=== PATIENT | male | born 1995 | race Caucasian/White ===

== ENCOUNTER 2016-05-05 23:54 | Inpatient (IN) | payer BC ==
[2016-05-05] MEDS ORDERED: NS 1,000 ML IV ONE (23:57)
[2016-05-06] MEDS ORDERED: IOPAMIDOL (ISOVUE-300) 100 ML BTL IV ONE (00:01)
--- NOTE | 2016-05-06 00:03 | EDPHY ---
[id number] ILLNESS: This patient 21-year-old male denies any significant medical history brought in by EMS GCS 15, alert and orient x4, intoxicated with alcohol, he fell off a balcony 15 feet landing on his left side. He has obvious ecchymosis and swelling to left chest wall. He tells me he has pain all over his body. Upon arrival here to the emergency room he has been placed into ER room 4. He has been placed on a full risk compliance manager cervical collar has been in place. We removed all his clothes and on head to toe trauma exam. Past Medical History: No significant medical history Past Surgical History: No significant surgical history Social History: endorses alcohol this evening, also endorses doing acid Family History: Noncontributory ROS REVIEW OF SYSTEMS: A comprehensive 10 point review of systems is otherwise negative aside from elements mentioned in the history of present illness. Exam Constitutional GCS 15, alert or x4, smells of alcohol, triage nursing summary reviewed, vital signs reviewed, awake/alert. Eyes normal conjunctivae and sclera, EOMI, PERRLA. HENT head/neck: Atraumatic, placed in a cervical collar, normal inspection, atraumatic, moist mucus membranes, no epistaxis, neck supple/ no meningismus, no raccoon eyes. Respiratory clear to auscultation bilaterally, normal breath sounds, no respiratory distress, no wheezing. Cardiovascular chest wall: Ecchymosis and swelling to the left lateral chest wall, I do not appreciate flail chest, do not appreciate crepitus, This does wrap around to the left posterior ribs, no midline pain of the cervical T and L- spine, no flail chest, no crepitus, rate normal, regular rhythm, no murmur, no edema, distal pulses normal. Gastrointestinal soft, non-tender, no rebound, no guarding, normal bowel sounds, no distension, no pulsatile mass. Genitourinary no CVA tenderness. Musculoskeletal left upper extremity no midline vertebral tenderness, full range of motion, no calf swelling, no tenderness of extremities, no meningismus , good pulses, neurovascularly intact. Skin pink, warm, & dry, no rash, skin atraumatic. Neurologic smells of alcohol, awake, alert and oriented x 3, AAOx3, moves all 4 extremities equally, motor intact, sensory intact, CN II-XII intact, normal cerebellar, normal vision, slurring of speech Psychiatric normal mood/affect. Heme/Lymph/Immune no lymphadenopathy. Differential Diagnosis: Includes but is not limited to in a particular order: Pneumothorax, hemothorax, rib fractures, poly trauma, intracranial bleed, subdural, epidural, traumatic subarachnoid, skull fracture, cervical spine injury, intra-abdominal trauma Medical Decision Making:This patient had a CT scan head, neck, chest abdomen pelvis with IV contrast for trauma, patient had an x-ray of his left forearm Re-evaluation: 1206: This patient tells me he has no idea how he fell 15 feet [place]. He does tell me he has tenderness 10 left lateral posterior rib pain. He tells me drank multiple alcoholic beverages this evening states he drank 7 beers. He also admits to doing acid. CT scan of the chest with contrast for trauma. The results of the study are left-sided large pneumothorax no tension physiology, left-sided rib fracture 9th and 10th posterior also has a T8 TP fx, T9 TP Fx The study was read by Dr. Trinidad. I viewed the images myself on the PACS system. CT scan of the Head w/o. The results of the study are negative for acute traumatic injury The study was read by Dr. Trinidad. I viewed the images myself on the PACS system. CT scan of the C Spine The results of the study are negative for acute traumatic injury. The study was read by Dr. Trinidad. I viewed the images myself on the PACS system. CT scan of the Abd/pelvis. The results of the study are negative for acute traumatic intra-abdominal injury. The study was read by Dr. Trinidad. I viewed the images myself on the PACS system. ED x-ray chest one view: Negative for acute cardiopulmonary disease. I do not appreciate a large pneumothorax. ED x-ray left forearm: Soft tissue swelling, no bony abnormality. Image interpreted by myself. Dr. Todd aware of this patient. Patient moved ER room 2 for chest tube placement. Critical Care: Total Critical Care Time Spent Managing this Patient: 60Minutes. This time was spent Exclusively with this patient. This Care was exclusive of procedures. The Organ System/life at risk was poly trauma, ribs, lung, intra-abdominal organ , neuro, spine This Patient was in Critical Condition because large left-sided pneumothorax, multiple rib fractures, transverse process fractures 0200: Patient is hemodynamically stable has a left-sided chest tube in place. This was placed by Dr. Todd with Trauma surgery. Post x-ray of chest tube appears in place. Patient be transferred to step-down unit telemetry monitoring given the has a chest tube in place and is intoxicated with acid and alcohol. Source: Patient, EMS Constitutional: Initial Vital Signs Temperature (C) 36.6 C 05/05/16 23:55 Heart Rate 102 H 05/05/16 23:55 Respiratory Rate 16 05/05/16 23:55 Blood Pressure 131/61 H 05/05/16 23:55 O2 Sat (%) 94 05/05/16 23:55 O2 Delivery Mode Room Air O2 (L/minute) 2 Allergies/Adverse Reactions: No Known Allergies Allergy (Unverified 05/06/16 00:30) Medical Decision Making - Data Points Laboratory Results: Laboratory Results 05/06/16 00:06 05/06/16 00:06 05/06/16 05/05/16 00:06 23:59 WBC 8.60 10^3/uL (3.80-9.50) RBC 4.81 10^6/uL (4.40-6.38) Hgb 15.5 g/dL (13.7-17.5) POC Hgb 15.6 gm/dL (14.5-17.3) Hct 44.8 % (40.0-51.0) POC Hct 46 % (42.8-50.6) MCV 93.1 fL (81.5-99.8) MCH 32.2 pg (27.9-34.1) MCHC 34.6 g/dL (32.4-36.7) RDW 12.5 % (11.5-15.2) Plt Count 165 10^3/uL (150-400) MPV 9.7 fL (8.7-11.7) Neut % (Auto) 49.3 % (39.3-74.2) Lymph % (Auto) 37.3 % (15.0-45.0) [place] % (Auto) 11.9 % (4.5-13.0) Eos % (Auto) 0.6 % (0.6-7.6) Baso % (Auto) 0.2 L % (0.3-1.7) Nucleat RBC Rel Count 0.0 % (0.0-0.2) Absolute Neuts (auto) 4.24 10^3/uL (1.70-6.50) Absolute Lymphs (auto) 3.21 H 10^3/uL (1.00-3.00) Absolute Monos (auto) 1.02 H 10^3/uL (0.30-0.80) Absolute Eos (auto) 0.05 10^3/uL (0.03-0.40) Absolute Basos (auto) 0.02 10^3/uL (0.02-0.10) Absolute Nucleated RBC 0.00 10^3/uL (0-0.01) Immature Gran % 0.7 % (0.0-1.1) Immature Gran # 0.06 10^3/uL (0.00-0.10) PT 13.2 SEC (12.0-15.0) INR 1.01 (0.83-1.16) APTT 28.5 SEC (23.0-38.0) POC Sodium 141 mEq/L (134-144) Sodium 145 H mEq/L (134-144) POC Potassium 3.1 L mEq/L (3.3-5.0) Potassium 3.5 mEq/L (3.5-5.2) POC Chloride 104 mEq/L (96-108) Chloride 109 mEq/L (97-110) Carbon Dioxide 20 L mEq/l (22-31) Anion Gap 16 mEq/L (8-16) POC BUN 13 mg/dL (7-23) BUN 13 mg/dL (7-23) Creatinine 0.8 mg/dL (0.7-1.3) POC Creatinine 1.1 mg/dL (0.8-1.5) Estimated GFR > 60 Glucose 100 mg/dL (70-100) POC Glucose 103 H mg/dL (70-100) Calcium 8.8 mg/dL (8.5-10.4) Ethyl Alcohol 198 H mg/dL (0-10) Medications Given: Discontinued Medications Fentanyl (Sublimaze) 100 mcg IVP EDNOW ONE Stop: 05/06/16 00:27 Last Admin: 05/06/16 00:27 Dose: 100 mcg Sodium Chloride (Ns) 1,000 mls @ 0 mls/hr IV EDNOW ONE PRN Reason: Wide Open Stop: 05/05/16 23:58 Last Admin: 05/06/16 00:22 Dose: 1,000 mls Ondansetron HCl (Zofran) 4 mg IVP EDNOW ONE Stop: 05/06/16 01:31 Last Admin: 05/06/16 01:35 Dose: 4 mg Point of Care Test Results: 05/05/16 23:59 POC Sodium 141 POC Potassium 3.1 L POC Chloride 104 POC BUN 13 POC Creatinine 1.1 POC Glucose 103 H Departure - Departure Disposition: [facility] Inpatient Acute Clinical Impression: Multiple transverse process fractures Alcohol intoxication Qualifiers: Complication of substance-induced condition: uncomplicated Qualifier Code: ( F10.120) Alcohol abuse with intoxication, uncomplicated Pneumothorax Qualifiers: Pneumothorax type: traumatic Encounter type: initial encounter Qualifier Code: (S27.0XXA) Traumatic pneumothorax, initial encounter Rib fracture Qualifiers: Encounter type: initial encounter Rib fracture type: multiple ribs Fracture type: closed Laterality: left Qualifier Code: (S22.42XA) Multiple fractures of ribs, left side, initial encounter for closed fracture Condition: Fair
[2016-05-06] MEDS ORDERED: fentaNYL 100 MCG/2 ML INJ ONE (00:09)
[2016-05-06 00:12] LABS: % IMMATURE GRANULYOCYTES 0.7 % (0.0-1.1); ABSOLUTE IMMATURE GRANULOCYTES 0.06 10^3/uL (0.00-0.10); ADD DIFF? NO; ADD MORPH? NO; ADD SCAN? NO; ATYPICAL LYMPHOCYTE FLAG 30 (0-99); FRAGMENT RBC FLAG 0 (0-99); HEMATOCRIT 44.8 % (40.0-51.0); HEMOGLOBIN 15.5 g/dL (13.7-17.5); LEFT SHIFT FLG 0 (0-99); LIPEMIA HEMOLYSIS FLAG 90 (0-99); MEAN CELL HEMOGLOBIN 32.2 pg (27.9-34.1); MEAN CELL HEMOGLOBIN CONCENTR. 34.6 g/dL (32.4-36.7); MEAN CELL VOLUME 93.1 fL (81.5-99.8); MEAN PLATELET VOLUME 9.7 fL (8.7-11.7); PLATELET CLUMPS FLAG 0 (0-99); PLATELET COUNT 165 10^3/uL (150-400); RED BLOOD CELL COUNT 4.81 10^6/uL (4.40-6.38); RED CELL DISTRIBUTION WIDTH 12.5 % (11.5-15.2)
[2016-05-06 00:21] LABS: INR 1.01 (0.83-1.16); PROTIME(PATIENT) 13.2 SEC (12.0-15.0)
[2016-05-06 00:22] LABS: APTT 28.5 SEC (23.0-38.0)
[2016-05-06] MEDS ORDERED: fentaNYL 100 MCG/2 ML INJ IVP ONE (00:26)
[2016-05-06 00:33] LABS: ANION GAP 16 mEq/L (8-16); CALCIUM 8.8 mg/dL (8.5-10.4); CARBON DIOXIDE 20 mEq/l (22-31); CHLORIDE 109 mEq/L (97-110); CREATININE 0.8 mg/dL (0.7-1.3); ETHANOL SERUM 198 mg/dL (0-10); GLOMERULAR FILTRATION RATE > 60; GLUCOSE 100 mg/dL (70-100); POTASSIUM 3.5 mEq/L (3.5-5.2); SODIUM 145 mEq/L (134-144)
[2016-05-06] MEDS ORDERED: ACETAMINOPHEN 325 MG TAB PO PRN (00:51)
[2016-05-06] MEDS ORDERED: NALOXONE HCL 0.4 MG/ML INJ IVP PRN ×2 (00:51→07:50)
[2016-05-06] MEDS ORDERED: IBUPROFEN 600 MG TAB PO PRN (00:51)
[2016-05-06] MEDS ORDERED: LR 1,000 ML IV SCH (01:00)
--- NOTE | 2016-05-06 01:25 | CT ---
CT Chest, Abdomen, and Pelvis With Thoracolumbar Spine Reformations With Contrast History: Fall 15 feet. Comparison: CT cervical spine same day. Technique: Axial contrast enhanced images were obtained through the chest, abdomen and pelvis followi ng the uneventful administration of 98 mL Isovue-300 intravenous contrast. Multiplanar reformations w ere performed through the spine. Dose reduction techniques were utilized. Findings: Chest: There is a large left pneumothorax with a tiny left pleural effusion, without mediastinal shift. The right lung is clear. Heart size is normal. The aorta is normal caliber without dissection. A mildly c omminuted nondisplaced posterior left 9th rib fracture is present with a nondisplaced posterior left 10th rib fracture. Subcutaneous emphysema overlies the posterior left chest. Abdomen: A tiny hypodensity in the liver is too small to characterize, of doubtful clinical significance. The right lobe of the liver is elongated, suggesting a Sb's lobe. The gallbladder, spleen, pancreas, and adrenals are normal. There are ill-defined subtle areas of hypoenhancement in the kidneys bilater ally. There is no visible renal laceration. No perinephric fluid is present. The colon and small bowel are normal caliber. The appendix is normal. There is no free air. The aorta is normal caliber. The IVC, portal, splenic, and superior mesenteric veins are patent. Pelvis: The bladder is mildly distended but otherwise normal. There is trace free fluid. Subcutaneous contusi ons are noted in the left buttock. No fracture is identified. Thoracolumbar Spine: A nondisplaced fracture of the left T8 transverse process is present with an equivocal nondisplaced l eft T9 transverse process fracture. Mild anterior height reduction at T7 and T8 with endplate irregul arity is likely congenital. No lumbar fracture is identified. Alignment of the spine is normal. Impression: 1. Large left pneumothorax without definite evidence of tension. 2. Nondisplaced posterior left 9th and 10th rib fractures 3. Nondisplaced left T8 transverse process fracture with a possible nondisplaced left T9 transverse p rocess fracture. 4. Subtle ill-defined heterogeneous renal enhancement bilaterally. This could be related to renal con tusions, pyelonephritis or artifact, among other etiologies. 5. 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 If symptoms persist and clinical suspi cion warrants, consider MRI. 6. Trace fluid in the pelvis. 7. Additional findings as above. Findings discussed with Valentino Hartley May 06, 2016 at 0047 hours.
--- NOTE | 2016-05-06 01:26 | CT ---
CT Cervical Spine Without Contrast History: Fall 15 feet. Comparison: CT head and chest same day. Technique: Multislice helical CT through the cervical spine without contrast from the skull base to T 1. Soft tissue and bone evaluation is performed. Sagittal and coronal reconstructions are obtained an d reviewed. Dose reduction techniques were utilized. The study was repeated due to motion. Findings: Cervical alignment is anatomic. No fracture is identified. The relationship between the sku ll base and C1 is normal. The C1-C2 articulation is normal. There is no significant degenerative lee ge. The cervicothoracic junction is normal. There is no visible epidural or prevertebral hematoma. A large left pneumothorax is visible. Impression: 1. Left pneumothorax, better visualized on CT chest from the same day. 2. No acute findings in the cervical spine. If there is persistent pain or neurologic deficit, consid er MRI and/or flexion and extension views if clinically indicated. Findings discussed with Valentino Hartley May 06, 2016at 0047 hours.
--- NOTE | 2016-05-06 01:26 | CT ---
CT Head Without Contrast History: Fall 15 feet. Comparison: None available. Technique: Axial unenhanced images were obtained from the vertex through the skull base. Dose reducti on techniques were utilized. Findings: Mcneal-white differentiation is preserved. The ventricles and sulci are normal. No intracra nial hemorrhage is identified. No extraaxial fluid collections are identified. There is no mass effe ct or evidence of infarct. The skull and skull base are unremarkable. Mild mucous membrane thickeni ng is present in the paranasal sinuses. The mastoid air cells are clear. Impression: No acute intracranial findings. Findings discussed with Valentino Hartley May 06, 2016 at 0047 hours.
[2016-05-06] MEDS ORDERED: ONDANSETRON 4 MG/2 ML VIAL IVP ONE (01:30)
--- NOTE | 2016-05-06 02:10 | GHP ---
[f rep st] HISTORY AND PHYSICAL DATE OF ADMISSION: 05/06/2016 CHIEF COMPLAINT: Fall with pneumothorax. HISTORY OF PRESENT ILLNESS: The patient is a 21-year-old, who was using acid earlier this evening when he fell. He was also intoxicated. He fell off a balcony about 15 feet. Prior to my arrival, he had a chest x-ray and a CT scan of his head, neck, chest, abdomen, and pelvis. Rib fractures of the left side 9 and 10 were found. Pneumothorax was found and left transverse process fractures of T8, T9. PAST MEDICAL HISTORY: Asthma. PAST SURGICAL HISTORY: None. SOCIAL HISTORY: He drinks alcohol. He has used a variety of drugs but only acid this evening. He does not use tobacco products. FAMILY HISTORY: Noncontributory. REVIEW OF SYSTEMS: Difficult to obtain due to his being high and needing immediate procedure. PHYSICAL EXAMINATION: VITAL SIGNS: His GCS is 15. 36.5, 102, 131/61, 16 94% on 2 L. GENERAL: Pleasant, needs to be redirected, well-groomed male sitting up and well-nourished on exam table. LUNGS: Decreased breath sounds on the left side. CARDIAC: Regular rate. HEENT: Normocephalic. No gross hearing deficits. Mucous membranes moist. Pupils equal and round. No scleral icterus. No otorrhea. No rhinorrhea. Teeth fit together normally. No midface instability. NECK: C-collar in place. No clavicular or sternal tenderness. ABDOMEN: Bowel sounds present. Soft, nontender, nondistended. MUSCULOSKELETAL: Moves all extremities. Normal nails. RESULTS REVIEWED: I personally reviewed his chest x-ray. He has a pneumothorax. IMPRESSION/PLAN: The patient is a 21-year-old, status post fall who was using illicit substances with a subsequent pneumothorax. I placed a chest tube. The post chest tube x-ray shows resolution of the pneumothorax. We will admit him to the SDU. Chest tube to suction. I cannot clear his c collar due to being high /[id number]/MODL MTDD
[2016-05-06] MEDS: HYDROCODONE/APAP 5/325 TAB PO PRN ×2 (03:53→07:39)
--- NOTE | 2016-05-06 04:15 | GPN ---
[f rep st] PROCEDURE NOTE DATE OF PROCEDURE: 05/06/2016 ANESTHESIA: None. PREOPERATIVE DIAGNOSIS: Left pneumothorax POSTOPERATIVE DIAGNOSIS: Left pneumothorax. PROCEDURE PERFORMED: Left chest tube thoracostomy. FINDINGS: Large gush of air. ESTIMATED BLOOD LOSS: 5 cc. SPECIMENS: None. INDICATIONS: The patient is a 21-year-old who fell earlier this evening and sustained rib fractures and a pneumothorax. DESCRIPTION OF PROCEDURE: The patient was in the Trauma [place]. He was on the gurney. His left arm was over his head. I prepped and draped his lateral chest. I infiltrated it with 10 cc of 1% lidocaine. I made an incision above the 6th rib space. I dissected down above the rib. I entered the chest cavity bluntly and there was a large gush of air. I directed a chest tube superiorly. This was sutured into place with 0 silk. A dressing was applied. This was connected to suction. Postoperative chest x-ray shows resolution of the pneumothorax. He tolerated the procedure well. /[id number]/MODL MTDD
[2016-05-06] MEDS: ONDANSETRON 4 MG/2 ML VIAL IVP PRN ×4 (05:16→17:27)
[2016-05-06 06:08] LABS: COLOR YELLOW; LEUKOCYTE ESTERASE,URINE NEGATIVE (NEGATIVE); NITRITE,URINE NEGATIVE (NEGATIVE)
[2016-05-06] MEDS: ENOXAPARIN 40 MG/0.4 ML SYR SC SCH (07:41)
[2016-05-06] MEDS ORDERED: IBUPROFEN 200 MG TAB PO PRN (07:50)
[2016-05-06] MEDS: HYDROmorphONE/DILAUDID 6 MG/30 ML PCA IV PRN ×2 (08:15→22:13)
--- NOTE | 2016-05-06 08:27 | DX ---
Chest, One View Portable May 06, 2016 0015 hours History: Trauma, fall from 15 feet. Technique: Portable AP upright view of the chest. Study just presented to me for interpretation. Comparison: None. Findings: Cardiac silhouette is normal in size. No pneumonia, congestive heart failure, pleural effu andrey, or mediastinal shift. Moderate left pneumothorax approximately 30%. Impression: 1. Moderate left pneumothorax. 2. Heart is normal in size.
--- NOTE | 2016-05-06 08:42 | DX ---
Chest, One View Portable May 06, 2016 0115 hours History: .Trauma, fall from 15 feet. Left chest tube. Left pneumothorax. Comparison: Earlier today. Findings: Chest tube in the left retrocardiac region. Minimal residual left apical pneumothorax. Sig nificant improvement. Left chest wall subcutaneous emphysema. No cardiomegaly or pulmonary contusion. Impression: 1. Left retrocardiac chest tube. 2. Significant improvement with minimal residual left apical pneumothorax.
--- NOTE | 2016-05-06 08:48 | TRAUMAPN ---
Assessment/Plan: 21yo M s/p 15ft fall c L sided rib fx and ptx s/p 28Fr CT placement - Neuro: intact, has some SP fx which are non-op. Will switch to PH[employer] M[employer]ER for pain control - Pulm: CT in place, minimal output. No air leak on suction but really poor effort from patient. Will keep to suction, once pain better controlled will work on IS and pulm toilet, likely place to WS later today - CV: HDS - GI: no abd pain, Reg diet - Heme: Hb and coags stable, CT output minimal and clearing - ID: No abx, watch for fever with CT in place - Dispo: cont SDU, CT to suction, likely WS later today. Work on pain control and IS Subjective: C/o pain in L chest Objective: Vital Signs Temp Pulse Resp BP Pulse Ox 36.8 C 54 L 18 125/64 H 93 05/06/16 08:00 05/06/16 08:00 05/06/16 08:00 05/06/16 08:00 05/06/16 08:00 05/05/16 05/06/16 05/07/16 05:59 05:59 05:59 Intake Total 1150 Output Total 625 Balance 525 PT 13.2 SEC (12.0-15.0) 05/06/16 00:06 INR 1.01 (0.83-1.16) 05/06/16 00:06 - C-Spine Clearance Cervical Spine Cleared: Yes Physical Exam - Physical Exam General Appearance: alert, mild distress EENT: PERRL/EOMI, normal ENT inspection, pharynx normal, TMs normal Neck: non-tender, full range of motion, supple, normal inspection Respiratory: other (L sided tenderness, CT site c/d/i and tidaling without air leak. No crepitus) Cardiac/Chest: normal peripheral pulses, regular rate, rhythm Abdomen: normal bowel sounds, non-tender, soft Neuro/Psych: no motor/sensory deficits, alert, normal mood/affect, oriented x 3
--- NOTE | 2016-05-06 08:55 | DX ---
Left Forearm, Two Views History: Pain, post trauma. Fall 2015 feet. Abrasion. Findings: No fracture or dislocation is identified. There is localized soft tissue swelling dorsally over the mid ulnar shaft. No radiopaque foreign material or soft tissue gas is identified. The underl deric ulnar cortex is intact. Impression: No fracture .
--- NOTE | 2016-05-06 14:35 | SOAPPROG ---
SOAP Progress Note Assessment/Plan: Assessment/Plan 21yo M s/p 15ft fall c L sided rib fx and ptx s/p 28Fr CT placement - Cervical spine cleared by me at 1415 05/06/16 14:35 Objective: Vital Signs Temp Pulse Resp BP Pulse Ox 36.6 C 73 12 122/70 H 95 05/06/16 12:00 05/06/16 12:00 05/06/16 12:00 05/06/16 12:00 05/06/16 12:00 05/05/16 05/06/16 05/07/16 05:59 05:59 05:59 Intake Total 1150 Output Total 625 250 Balance 525 -250 PT 13.2 SEC (12.0-15.0) 05/06/16 00:06 INR 1.01 (0.83-1.16) 05/06/16 00:06 ICD10 Worksheet Patient Problems: Problems Problem Status Diagnosed Alcohol intoxication Acute Multiple transverse process fractures Acute Pneumothorax Acute Rib fracture Acute
[2016-05-07] MEDS: ENOXAPARIN 40 MG/0.4 ML SYR SC SCH (08:28)
--- NOTE | 2016-05-07 09:32 | DX ---
Portable Chest 8:40 a.m. History: Follow-up left pneumothorax, history of 15 foot fall, trauma Comparison: Yesterday 1:15 a.m. Findings: I suspect there is still a small left apical pneumothorax without evidence of tension. This is little if at all changed since the prior exam, but significantly decreased since the pre left monet st tube exam. The lungs remain normally aerated. The left chest tube remains in place. Impression: Stable left apical small pneumothorax.
--- NOTE | 2016-05-07 10:00 | TRAUMAPN ---
- Problem/Surgery Performed (1) Multiple transverse process fractures Assessment/Plan: transition to oral analgesia (2) Pneumothorax Assessment/Plan: tiny apical PTX stable on H2O seal left chest tube discontinued recheck CXR in 3 hours Qualifiers: Pneumothorax type: traumatic Encounter type: initial encounter Qualifier Code(s): (S27.0XXA) Traumatic pneumothorax, initial encounter (3) Rib fracture Assessment/Plan: transition to oral analgesia Qualifiers: Encounter type: initial encounter Rib fracture type: multiple ribs Fracture type: closed Laterality: left Qualifier Code(s): (S22.42XA) Multiple fractures of ribs, left side, initial encounter for closed fracture Subjective: some nausea with [place] Objective: Vital Signs Temp Pulse Resp BP Pulse Ox 36.4 C 61 15 117/56 L 97 05/07/16 08:00 05/07/16 08:00 05/07/16 08:00 05/07/16 08:00 05/07/16 08:00 05/06/16 05/07/16 05/08/16 05:59 05:59 05:59 Intake Total 1150 3865 Output Total 625 335 Balance 525 3530 PT 13.2 SEC (12.0-15.0) 05/06/16 00:06 INR 1.01 (0.83-1.16) 05/06/16 00:06 - C-Spine Clearance Cervical Spine Cleared: Yes Physical Exam - Physical Exam General Appearance: alert Respiratory: other (chest tube without air leak, output serosanguinous, chest tube site without surrounding erythema)
--- NOTE | 2016-05-07 13:31 | DX ---
Portable Chest 1306 History: Post chest tube removal follow-up left pneumothorax history of fall Comparison: Earlier today at 840 a.m. Findings: No residual pneumothorax identified. The left chest tube has been removed. There is a thin plate of atelectasis at the left base. The costophrenic gutter is sharp. There is a small amount of l ower left chest wall subcutaneous emphysema. Impression: No pneumothorax post left chest tube removal.
[2016-05-07] MEDS: ONDANSETRON 4 MG/2 ML VIAL IVP PRN (14:50)
[2016-05-07] MEDS: OXYCODONE/APAP 5/325 TAB PO PRN ×3 (14:56→20:07)
[2016-05-08] MEDS: OXYCODONE/APAP 5/325 TAB PO PRN ×2 (00:05→04:00)
[2016-05-08 07:31] VITALS: RESP 16; O2SAT 91
[2016-05-08] MEDS: oxyCODONE IR 5 MG TAB PO PRN ×2 (07:34→11:20)
[2016-05-08] MEDS: IBUPROFEN 600 MG TAB PO SCH ×2 (07:35→12:57)
[2016-05-08] MEDS: ENOXAPARIN 40 MG/0.4 ML SYR SC SCH (08:42)
--- NOTE | 2016-05-08 08:44 | TRAUMAPN ---
- Problem/Surgery Performed (1) Multiple transverse process fractures Assessment/Plan: continue aggressive analgesia (2) Pneumothorax Assessment/Plan: chest tube removed yesterday PTX resolved on repeat CXR Qualifiers: Pneumothorax type: traumatic Encounter type: initial encounter Qualifier Code(s): (S27.0XXA) Traumatic pneumothorax, initial encounter (3) Rib fracture Assessment/Plan: continue aggressive analgesia Qualifiers: Encounter type: initial encounter Rib fracture type: multiple ribs Fracture type: closed Laterality: left Qualifier Code(s): (S22.42XA) Multiple fractures of ribs, left side, initial encounter for closed fracture Assessment/Plan: will be able to be discharged home later today if current analgesia regimen continues to control pain well Subjective: pain crisis this morning upon awakening now pain controlled well Objective: Vital Signs Temp Pulse Resp BP Pulse Ox 37.1 C 59 L 16 134/80 H 91 L 05/08/16 07:30 05/08/16 07:30 05/08/16 07:30 05/08/16 07:30 05/08/16 07:30 05/07/16 05/08/16 05/09/16 05:59 05:59 05:59 Intake Total 3865 1550 Output Total 335 650 Balance 3530 900 PT 13.2 SEC (12.0-15.0) 05/06/16 00:06 INR 1.01 (0.83-1.16) 05/06/16 00:06 - C-Spine Clearance Cervical Spine Cleared: Yes Physical Exam - Physical Exam General Appearance: alert Respiratory: lungs clear Cardiac/Chest: regular rate, rhythm
[2016-05-08] MEDS ORDERED: DOCUSATE SODIUM 100 MG CAP PO SCH (09:00)
--- NOTE | 2016-05-08 09:37 | GDS ---
[f rep st] DISCHARGE SUMMARY DIAGNOSES: Left pneumothorax, left 9th and 10th rib fractures and left T8 and T9 transverse process fractures, hallucinogenic use. ADMITTING PHYSICIAN: Janay Quiroz MD. PROCEDURES: Left chest tube placement. HISTORY OF PRESENT ILLNESS AND HOSPITAL COURSE: The patient is a 21-year-old [employer] student who was usin g acid and fell off a balcony 15 feet. He was found on trauma workup to have left-sided rib fracture s, left-sided transverse process fractures of T8 and T9 and a left pneumothorax. Chest tube was plac ed with followup chest x-ray showing near resolution of the pneumothorax. He was admitted for analge umair, chest tube management and pulmonary hygiene. Later that afternoon, the chest tube was placed to water seal noting no recurrence of the pneumothorax. The following morning the chest tube was subse quently discontinued. Followup chest x-ray revealed no recurrence of the pneumothorax. He was gradu ally transitioned from IV analgesia to oral analgesia which is currently working well and he will be discharged home with followup with Dr. Tucker in 1-2 weeks. DISCHARGE MEDICATIONS: Oxycodone CR 10 mg b.i.d., oxy IR 5-10 mg q.3 hours p.r.n. pain, ibuprofen 60 0 mg 4 times daily, and Colace 100 mg b.i.d. /[id number]/MODL
[2016-05-08 11:39] VITALS: BP 135/85; PULSE 62; TEMP 98.5
== END 2016-05-08 14:28 | disposition home or self-care (01) | DRG 200 ==
LOC: F2N 05-06 02:17 → F3N 05-07 09:05
PROVIDERS: ADMIT Surgery; ATTEND Surgery
PROC: 0W9B30Z Drainage of Left Pleural Cavity with Drainage Device, Percutaneous Approach (ICD-10-PCS; principal; 2016-05-06)
DX: S27.0XXA Traumatic pneumothorax, initial encounter (principal); S22.42XA Multiple fractures of ribs, left side, initial encounter for closed fracture; S22.069A Unspecified fracture of T7-T8 vertebra, initial encounter for closed fracture; S22.079A Unspecified fracture of T9-T10 vertebra, initial encounter for closed fracture; F16.90 Hallucinogen use, unspecified, uncomplicated; F10.10 Alcohol abuse, uncomplicated; W13.0XXA Fall from, out of or through balcony, initial encounter
CPT/HCPCS: 82947-QW; 92523-GN; 96374; 97116-GP; 97161-GP; 97165-GO; 97530-GO; G0480; J1170; J1650; J2405; J3010; Q9967

== ENCOUNTER → 2016-05-11 | Outpatient (CLI) | payer BC ==
--- NOTE | 2016-05-11 17:13 | DX ---
Chest, PA and Lateral, 112 p.m. History: Rib injury, follow-up pneumothorax, J93.9 Comparison: May 07, 2016 Findings: The left pneumothorax has recurred and is moderate in severity greatest at the left lung ba se where there is a hydropneumothorax. There is no evidence for tension. The right lung is well expan ded. Heart size is normal. Impression: Recurrent left pneumothorax. Results called to Natasha Tucker at 509 p.m.
== END ==
LOC: FIMAGING 12:45
PROVIDERS: ATTEND Surgery
DX: J93.9 Pneumothorax, unspecified (principal)

== ENCOUNTER → 2016-05-12 | Outpatient (CLI) | payer BC ==
--- NOTE | 2016-05-12 11:50 | DX ---
PA and lateral chest. Clinical History: Follow-up left pneumothorax Comparison Study: May 11, 2016. Findings: Left pneumothorax is again noted, overall similar in size to previous study. The apical com ponent has increased in size, although the subpulmonic component has decreased in size. There is asso ciated small left pleural effusion posteriorly. Right lung is clear. Heart size is normal. No midline shift.. Multiple left-sided rib fractures again noted.. Impression: Overall stable left hydropneumothorax, as above. Results called to Dr. Natasha Tucker at 11:45 AM.
== END ==
LOC: FIMAGING 11:16
PROVIDERS: ATTEND Family Medicine
DX: J94.8 Other specified pleural conditions (principal)

== ENCOUNTER → 2016-05-20 | Outpatient (CLI) | payer BC | LOC: FIMAGING 09:49 | PROVIDERS: ATTEND Surgery | DX: S27.0XXD Traumatic pneumothorax, subsequent encounter (principal); X58.XXXD Exposure to other specified factors, subsequent encounter ==

== ENCOUNTER 2016-07-03 11:11 | Emergency (ER) | payer BC ==
[2016-07-03 11:20] VITALS: BP 114/74; PULSE 68; RESP 17; TEMP 97.7; O2SAT 98
--- NOTE | 2016-07-03 11:40 | EDPHY ---
HPI/HX/ROS/PE/MDM Narrative: CHIEF COMPLAINT: Right knee injury and pain HPI: The patient is a 21 y/o male arriving with his friend complaining of acute right knee pain secondary to skiing yesterday. He describes an eversion injury to his right knee that was associated with an immediate "pop" and pain. He has been able to walk carefully as any lateral movement causes significant pain, particularly along the medial aspect of his knee. He denies other injuries, weakness, or paresthesias. He had a recent spontaneous pneumothorax, but is otherwise healthy. REVIEW OF SYSTEMS: Aside from elements discussed in the HPI, a comprehensive 10-point review of systems was reviewed and is negative. PMH: Pneumothorax SOCIAL HISTORY: Friend at bedside. PHYSICAL EXAM: General:Patient is alert, in no acute distress. Skin: Normal color. No rash. Warm and dry. Skin is intact without ecchymosis or swelling over right knee. Extremities: Right knee has pain with stress of medial and collateral ligaments and a negative inferior draw. He has tenderness along the medial aspect of his right knee. Other extremities are normal in appearance with full range of motion. Neuro: Oriented x3. Normal motor function. Normal sensory function. ED Course: This is a healthy 21 y/o male who presents with acute onset right knee pain secondary to skiing yesterday. He describes an eversion injury with associated "pop" at the time." He has tenderness along the medial aspect of his right knee and pain with lateral and medial movement of his knee. He is neurovascularly intact. I suspect this is likely a ligamentous injury, but we will perform an x- ray to rule out fracture. 1 tab PO Percocet administered for pain. Study: Right knee x-ray Indication: Trauma, pain Results: Right knee x-ray was obtained. The results of the study are negative for fracture. Radiologist report pending. I viewed the images myself on the PACS system. I discussed findings with the patient. He will be discharged with a script for Percocet, in a knee immobilizer, and with standard knee sprain follow up instructions with ortho. He is comfortable with this plan. Return precautions given. General Time Seen by Provider: 07/03/16 11:25 Initial Vital Signs: Initial Vital Signs Temperature (C) 36.5 C 07/03/16 11:18 Heart Rate 68 07/03/16 11:18 Respiratory Rate 17 07/03/16 11:18 Blood Pressure 114/74 07/03/16 11:18 O2 Sat (%) 98 07/03/16 11:18 O2 Delivery Mode Room Air Allergies/Adverse Reactions: No Known Allergies Allergy (Verified 07/03/16 11:17) Home Medications: Medication Instructions Recorded Oxycontin 07/03/16 Departure - Departure Disposition: Home, Routine, Self-Care Clinical Impression: Right knee sprain Qualifiers: Encounter type: initial encounter Involved ligament of knee: other ligament Qualified Code(s): S83.8X1A - Sprain of other specified parts of right knee, initial encounter Condition: Good Instructions: Knee Sprain (ED), Knee Immobilizer (ED) Additional Instructions: 1. Take 600mg ibuprofen every 6-8 hours for pain and inflammation for the next 2 -3 days. Apply ice to sore areas. 2. Use Oxycodone as prescribed for pain not controlled by ibuprofen. 3. Keep knee in immobilizer until follow up. Okay to bear weight with crutches as tolerated while brace is in place. 4. Follow up with orthopedist in the next 4-5 days. You will likely need an MRI to further evaluate to your injury. 5. Return to the ED for severe pain, weakness or numbness in your leg, or other worsening of condition. Referrals: NONE *PRIMARY CARE P,. [Primary Care Provider] - As per Instructions Danilo Huggins MD [Medical Doctor] - As per Instructions Report Scribed for: Carlos Chisholm Report Scribed by: Britt Escalera Date of Report: 07/03/16 Time of Report: 11:45 Physician Review and Approval Statement: Portions of this note were transcribed by an ED scribe. I personally performed the history, physical exam, and medical decision making; and confirm the accuracy of the information in the transcribed note.
[2016-07-03] MEDS ORDERED: OXYCODONE/APAP 5/325 TAB PO ONE (11:41)
== END 2016-07-03 12:24 | disposition home or self-care (01) ==
DX: S83.8X1A Sprain of other specified parts of right knee, initial encounter (principal); V00.328A Other snow-ski accident, initial encounter; Y99.8 Other external cause status; Y93.23 Activity, snow (alpine) (downhill) skiing, snowboarding, sledding, tobogganing and snow tubing
CPT/HCPCS: L1830